=== PATIENT | male | born 1990 | race Caucasian/White ===

== ENCOUNTER 2016-09-21 16:02 | Emergency (ER) | payer MEDICAID ==
[2016-09-21] MEDS ORDERED: ONDANSETRON 4 MG VIAL ONE ×2 (18:15→19:27)
[2016-09-21] MEDS ORDERED: DILAUDID 1 MG/ML AMP ONE (18:16)
[2016-09-21] MEDS ORDERED: SODIUM CHLORIDE 0.9% 1,000 ML ONE (18:16)
[2016-09-21] MEDS ORDERED: DICYCLOMINE 20MG/2ML VIAL IM ONE (19:26)
== END 2016-09-21 19:49 | disposition home or self-care (01) ==
LOC: ER 16:02
DX: R10.31 Right lower quadrant pain (principal); R31.0 Gross hematuria
CPT/HCPCS: 36415; 74176; 80053; 81001; 83690; 85025; 96361; 96374; 96375; 96376

== ENCOUNTER 2016-09-24 13:11 | Emergency (ER) | payer MEDICAID ==
[2016-09-24] MEDS ORDERED: ONDANSETRON ODT 4 MG TAB ONE (15:03)
[2016-09-24] MEDS ORDERED: DILAUDID 1 MG/ML AMP ONE (15:04)
[2016-09-24] MEDS ORDERED: SODIUM CHLORIDE 0.9% 1,000 ML ONE (15:26)
== END 2016-09-24 16:56 | disposition home or self-care (01) ==
LOC: ER 13:11
DX: R31.0 Gross hematuria (principal); R10.9 Unspecified abdominal pain; N43.3 Hydrocele, unspecified; F17.210 Nicotine dependence, cigarettes, uncomplicated
CPT/HCPCS: 36415; 74000; 76870; 80053; 81001; 83690; 85025; 85610; 85730; 87088; 87491; 87591; 96360; 96372